=== PATIENT | male | born 1965 | race Caucasian/White ===

== ENCOUNTER 2017-07-06 21:52 | Emergency (ER) | payer SELFPAY ==
[2017-07-06] MEDS ORDERED: LORazepam 2 MG/ML INJ ONE (22:03)
[2017-07-06] MEDS ORDERED: HALOPERIDOL LACT 5 MG/ML INJ ONE (22:06)
[2017-07-06] MEDS ORDERED: MIDAZOLAM 2 MG/2 ML VIAL ONE (22:06)
[2017-07-06] MEDS ORDERED: HALOPERIDOL LACT 5 MG/ML INJ IM ONE (22:06)
[2017-07-06] MEDS ORDERED: MIDAZOLAM 2 MG/2 ML VIAL IM ONE (22:07)
[2017-07-06 22:19] VITALS: TEMP 97.7
--- NOTE | 2017-07-06 22:54 | EDPHY ---
H & P Smoking Status: Unknown if ever smoked Time Seen by Provider: 07/06/17 22:05 HPI/ROS: HPI Alcohol intoxication, possible head trauma. 51-year-old male with [place] police and EMS. Patient homeless. Found by security guards on a commercial property. Found down on the concrete and intoxicated. No witnessed fall but abrasions to head. Strong odor of alcohol on his breath. Patient denies any significant fall or other traumatic event. Patient very agitated on arrival requiring physical restraint. ROS: Unable to obtain secondary to patient's agitation. Past medical history: Unable to obtain secondary to patient's agitation. Social history: Reported by police is homeless. Alcohol tonight. Physical Exam: General Appearance: Alert, very agitated and combative swelling extremities at police officers and emergency department staff. Strong odor of alcohol on his breath.This patient appears generally well-hydrated and well-nourished. Head: Normocephalic atraumatic except for a superficial abrasion to his right forehead. Face: Facial bones are stable on palpation. Eyes: Pupils equal and round and reactive to light, no pallor or injection. No lid erythema or edema. ENT, Mouth: Mucous membranes moist. Dentition is intact. No malocclusion of the jaw. No tongue lacerations or abrasions. Pharynx is clear. The bilateral nasal canals are clear. No septal hematoma. Respiratory: There are no retractions, lungs are clear to auscultation with good air movement bilaterally. Chest wall is stable to AP and lateral palpation. Cardiovascular: Regular rate and rhythm. No murmur. Gastrointestinal: Abdomen is soft and nontender, no masses, bowel sounds normal. Neurological: Motor sensory function is intact. Cranial nerves are normal. Cerebellar function intact. Skin: Warm and dry, sunburn to face No lacerations, no contusions. Facial abrasion is noted. Musculoskeletal: Neck is supple and nontender. The trachea is midline. No obvious midline cervical, thoracic, lumbar or sacral tenderness on palpation or deformity noted on palpation. No flank tenderness on palpation. Extremities are symmetrical, full range of motion. All joints in the bilateral upper and bilateral lower extremities range without pain or impingement. No apparent tenderness on palpation of the long bones in the bilateral upper and bilateral lower extremities. Psychiatric: No agitation. No depression. Database: EKG: Imaging: CT head and cervical spine without contrast: Negative. Degenerative cervical spine changes noted. Results discussed with staff radiologist Dr. Pee Nicole. Procedures: Emergency department course: Secondary to patient's combativeness and agitation he was given 10 mg of intramuscular Haldol and 2 mg of intramuscular Versed. Plan will be to obtain CT imaging of head and cervical spine. 10:50 p.m., patient sleeping at this time. He is arousable to loud voice. Awaiting CT imaging. Care turned over to Dr. Sarahy Valencia at 11:00 p.m.. Differential Diagnosis: The differential diagnosis on this patient includes but is not limited to alcohol intoxication. This represents a partial list of diagnoses considered. These considerations are based on history, physical exam, past history, reassessment and diagnostic testing. (Dennise Lake) Constitutional: Initial Vital Signs Temperature (C) 36.5 C 07/06/17 22:18 Heart Rate 122 H 07/06/17 22:18 Respiratory Rate 18 07/06/17 22:18 Blood Pressure 133/77 H 07/06/17 22:18 O2 Sat (%) 92 07/06/17 22:18 O2 Delivery Mode Room Air O2 (L/minute) 2 Medical Decision Making - Diagnostics Imaging Results: Imaging Impressions Cervical Spine CT 07/06/17 22:07 Impression: 1. No significant intracranial abnormality seen. 2. No acute abnormality CT cervical spine. 3. Facet hypertrophy along with degenerative disk disease involving the cervical spine as detailed above. If symptoms worsen, additional imaging may be necessary. Findings discussed with Dennise Lake MD at 23:01 hour, 07/06/2017. Head CT 07/06/17 22:07 Impression: 1. No significant intracranial abnormality seen. 2. No acute abnormality CT cervical spine. 3. Facet hypertrophy along with degenerative disk disease involving the cervical spine as detailed above. If symptoms worsen, additional imaging may be necessary. Findings discussed with Dennise Lake MD at 23:01 hour, 07/06/2017. Other Provider: 12:00 a.m.- The patient became more and more clinically sober in the emergency department. He asked to go home. He was able to walk with a steady gait and felt well. He denies any pain or any other symptoms. He will be discharged. (Sarahy Valencia) - Data Points Medications Given: Discontinued Medications Haloperidol Lactate (Haldol Injection) 10 mg IM EDNOW ONE Stop: 07/06/17 22:07 Last Admin: 07/06/17 22:17 Dose: 10 mg Midazolam HCl (Versed) 2 mg IM EDNOW ONE Stop: 07/06/17 22:08 Last Admin: 07/06/17 22:17 Dose: 2 mg Departure - Departure Disposition: Home, Routine, Self-Care Clinical Impression: Alcohol intoxication Qualifiers: Complication of substance-induced condition: with delirium Qualified Code(s): F10.921 - Alcohol use, unspecified with intoxication delirium Condition: Good Instructions: Alcohol Intoxication (ED) Referrals: [facility] 24 Hours [Outside] - As per Instructions
[2017-07-07 00:26] VITALS: BP 139/80; PULSE 100; RESP 18; O2SAT 92
== END 2017-07-07 00:25 | disposition home or self-care (01) ==
LOC: EDUNIT#
DX: F10.921 Alcohol use, unspecified with intoxication delirium (principal)
CPT/HCPCS: J2060; J2250